=== PATIENT | female | born 1990 | race African-American/Black ===

== ENCOUNTER 2017-08-21 19:05 | Inpatient (IN) | payer OTHER ==
[~2017-08-21] VITALS: Ht 154.9 cm; Wt 78.9 kg
[~2017-08-21 19:05] MED LIST: DICLEGIS DR 101 EACH PO; DIMENHYDRINATE50 MG PO; MACROBID 100 M100 MG PO; PRENATABS RX T1 EACH PO; ZOFRAN ODT4 M1 SL
[2017-09-02 18:34] LABS: ABSOLUTE BASOPHIL COUNT 0 /CUMM (0.0-0.2); ABSOLUTE EOSINOPHIL COUNT 0.1 /CUMM (0.0-0.7); ABSOLUTE GRANULOCYTE CT 6.6 /CUMM (1.4-6.5); ABSOLUTE LYMPH COUNT 1.7 /CUMM (1.2-3.4); ABSOLUTE MONOCYTE COUNT 0.7 /CUMM (0.10-0.60); BASOPHIL % 0.2 % (0.0-2.0); EOSINOPHIL % 0.7 % (0-5); GRANULOCYTE % 72.6 % (42.2-75.2); HEMATOCRIT 36.2 % (37-47); MEAN CORPUSCULAR HGB 29.2 PG (27.0-31.0); MEAN CORPUSCULAR VOLUME 91.2 FL (81.0-99.0); MEAN PLATELET VOLUME 7.2 FL (7.4-10.4); PLATELET COUNT 228 /CUMM (130-400); RBC DISTRIBUTION WIDTH 14.5 % (11.5-14.5); RED BLOOD CELL CT 3.97 /CUMM (4.20-5.40); WHITE BLOOD CELL COUNT 9.1 /CUMM (4.8-10.8)
--- NOTE | 2017-09-02 18:36 | History & Physical ---
General Information and HPI MD Statement: I have seen and personally examined MARTY ERVIN and documented this H&P. The patient is a 26 year old female at 39 weeks and 6 days gestation who presented with a chief complaint of contractions. Source of Information: patient, family, old records Exam Limitations: language barrier, Family member present History of Present Illness: patient is a para 1 at term with complaints of contractions. Patient called the service and was alerted to come in for evaluatoin Allergies/Medications Allergies: Coded Allergies: No Known Allergies (01/02/17) Home Med list Dimenhydrinate 50 MG TABLET 1 TAB PO Q6P PRN nausea/vomiting Doxylamine/Pyridoxine HCl (Diclegis Dr 10-10 MG Tablet) 10 MG-10 MG TABLET.DR 2 TAB PO QPM nausea Nitrofurantoin Monohyd/M-Cryst (Macrobid 100 MG Capsule) 100 MG CAPSULE 1 CAP PO BID UTI with food Ondansetron (Zofran Odt) 4 MG TAB.RAPDIS 1 TAB SL TID PRN nausea Vit #76/Iron,Carb/FA (Prenatabs Rx Tablet) 29 MG IRON-1 MG TABLET 1 TAB PO DAILY Compliance With Home Meds: GOOD Past History office services coordinator History : 2 Para: 1 Last Menstrual Period: 11/29/16 Estimated Delivery Date: 09/03/17 Past office services coordinator History: none Past Pregnancies Past Pregnancies: Date of Delivery: 09/23/2015 Gestational Age: 40w Weight: Appx 6 lbs Type of Delivery: vaginal Place of Delivery: [place] Complications: None Medical History Blood Transfusion Hx: No Neurological: NONE EENT: NONE Cardiovascular: NONE Respiratory: NONE Gastrointestinal: NONE Hepatic: NONE Renal: NONE Musculoskeletal: NONE Psychiatric: NONE Endocrine: NONE Blood Disorders: NONE Cancer(s): NONE PROFESSOR OF HISTORY/Reproductive: NONE Other Medical Hx: na Surgical History Pertinent Surgical History: non-contributory Past Family/Social History Psychosocial History Where do you live? Home Who Do You Live With? child, self Primary Language: [facility] Smoking Status: Never Smoked ETOH Use: denies use Illicit Drug Use: denies illicit drug use Living Will? unknown Power of [place]ac Operator/HCP? unknown Other Social History: na Employment History Employment Unemployed Review of Systems Review of Systems Constitutional: Denies: no symptoms. EENTM: Denies: no symptoms. Cardiovascular: Denies: no symptoms. Respiratory: Denies: no symptoms. GI: Denies: no symptoms. Genitourinary: Denies: no symptoms. Musculoskeletal: Denies: no symptoms. Skin: Denies: no symptoms. Neurological/Psychological: Denies: no symptoms. Hematologic/Endocrine: Denies: no symptoms. Immunologic/Allergic: Denies: no symptoms. Date of LMP: 11/29/16 Post Menopausal: No Exam & Diagnostic Data Last 24 Hrs of Vital Signs/I&O See paper record Obstetric Exam Wgt Gained During : 22 lbs Pelvimetry: Gynecoid Dilation (cm): 4 Effacement (%): 100 Station: 1 Membranes: intact Fluid: Intact Fundal Height (cm): 38 Multiple Gestation? No Contractions: Every 2-3 #1 - FHR Baseline: 140 Category: 1 Estimated Weight: 3000 grams Presentation: Cephalic Patient for Induction? No Randolph Score Randolph Score Response Value Cervix Position: mid-position 1 Cervix Consistency: soft 2 Cervix Effacement: >80% 3 Cervix Dilation: 3-4 cm 2 Cervix Station: +1,+2 3 Total 11 Physical Exam General Appearance Alert, Oriented X3, Moderate Distress Skin No Rashes HEENT Atraumatic Neck Supple Cardiovascular Regular Rate Lungs Clear to Auscultation, Normal Air Movement Abdomen Soft Neurological Normal Gait, Normal Speech, Strength at 5/5 X4 Ext, Reflexes 2+ Extremities No Edema Vascular Pulses Symmetrical Breasts Breast appear nl Reproductive (FEMALE) Normal female genitalia Labs Blood Type & Rh: B positive Antibody Screen: negative Hct/Hgb & Platelets #1: 35.7/211 Hct/Hgb & Platelets #2: 32.9/181 Rubella: immune VDRL #1: negative VDRL #2: negative HbsAg: negative HIV #1: negative HIV #2 negative 1 Hr P Group B Strep: Positive Initial Ultrasound: Wnl Anatomy Ultrasound: Wnl Ultrasound for EFW: At 28 weeks was 2lb5oz Genetic Testing: Unknown Last 24 Hrs of Labs/[place]: Laboratory Tests 09/02/17 1823: CBC w Diff Pending, WBC Pending, RBC Pending, Hgb Pending, Hct Pending, MCV Pending, MCH Pending, MCHC Pending, RDW Pending, Plt Count Pending, MPV Pending Assessment/Plan Assessment/Plan: 26 charline old para 1 at term in early labor. GBBS positive. Start on PCN goal to get at leasat two doses in prior to delivery Catagory 1 tracing Intact membranes Counseled via culinary instructor phone regarding pain mgmt in labor. She is a candidate for epidural. Stadol to be given now. Follow up labs. Gynecoid pelvis and clinical EFW of 3 kg. Anticipate vaginal . As Ranked By This Provider Problem List: 1. Core Measures Venous Thromboembolism VTE Risk Factors / No Mechanical VTE Prophylaxis d/t N/A MechProphylax Ordered No VTE Pharm Prophylaxis d/t NA PharmProphylax ordered Attending MD Review Statement Attending Statement Attending MD Statement: examined this patient, discussed w/nursing Attending Assessment/Plan: As outlined
--- NOTE | 2017-09-02 20:12 | PN- OBGYN ---
Surgical Brief Attending Note Brief Attending Note: Comfortable after epidural Partner at bedside Catagory 1 tracing Hct 36 and platelets 228 6-7/100/-1 Gynecoid pelvis GBBS positive. S/p 5 million units of PCN. Anticipate vaginal Good labor progress.
--- NOTE | 2017-09-02 22:28 | Labor & Delivery Summary ---
Delivery Summary Vaginal Delivery: Vaginal: spontaneous Episiotomy/Lacerations: Episiotomy/Lacerations: 2nd degree fourchette Type: 2nd degree Repair: 3-0 vicryl Anesthesia: Epidural Placenta: Placenta: spontanteous, normal, 3 vessel, No nuchal Anesthesia: Epidural Cord PH Value: NA Baby's Weight: 2965 Apgars - 1 Min: 9 Apgars - 5 Min: 9 Additional Comments: Left shoulder anterior and passed spontaneously No nuchal cord Vigorous cry noted Given to mom on abdomen Placenta intact and 3 vessel No sulcus tears and fourchette 2nd degree repaired with good hemostasis Rectum without suture EBL 300 CC uterus tonic with oxytocin
--- NOTE | 2017-09-03 08:41 | PN- OBGYN ---
Surgical Brief Attending Note Brief Attending Note: Seen and evaluated Translation from partner present in room Mild cramps Beginning to breast feed Vitals per paper record Lungs clear No cvat Fundus firm and nontender 1+ edema and negative juan pablo's PPD#1 s/p vaginal . Breast feeding counseling and support Pain mgmt strategies reviewed S/p PCN for GBBS Bonding well with Follow up am cbc
[2017-09-03 10:55] LABS: ABSOLUTE BASOPHIL COUNT 0 /CUMM (0.0-0.2); ABSOLUTE EOSINOPHIL COUNT 0 /CUMM (0.0-0.7); ABSOLUTE LYMPH COUNT 1.6 /CUMM (1.2-3.4); ABSOLUTE MONOCYTE COUNT 0.8 /CUMM (0.10-0.60); BASOPHIL % 0.3 % (0.0-2.0); EOSINOPHIL % 0.4 % (0-5); GRANULOCYTE % 76.8 % (42.2-75.2); MEAN CORPUSCULAR HGB 30.4 PG (27.0-31.0); MEAN CORPUSCULAR HGB CONC 33.2 G/DL (33.0-37.0); MEAN CORPUSCULAR VOLUME 91.4 FL (81.0-99.0); PLATELET COUNT 199 /CUMM (130-400); RBC DISTRIBUTION WIDTH 14.3 % (11.5-14.5); RED BLOOD CELL CT 3.72 /CUMM (4.20-5.40); WHITE BLOOD CELL COUNT 10.4 /CUMM (4.8-10.8)
[2017-09-04] MEDS ORDERED: IBUPROFEN800 M1 PO (08:30)
== END 2017-09-04 13:40 | DRG 560 ==
LOC: OPOTHR 19:05 → GNO 09-02 17:58
PROVIDERS: Obstetrics & Gynecology; Specialist
PROC: 10E0XZZ Delivery of Products of Conception, External Approach (ICD-10-PCS; principal; 2017-09-02)
PROC: 0KQM0ZZ Repair Perineum Muscle, Open Approach (ICD-10-PCS; principal; 2017-09-02)
DX: O70.0 First degree perineal laceration during delivery (principal); Z3A.39 39 weeks gestation of pregnancy; Z37.0 Single live birth; O99.824 Streptococcus B carrier state complicating childbirth
CPT/HCPCS: GNOP; GNOS; 81001; 87086; J0595; J7120